=== PATIENT | male | born 1945 | race Caucasian/White ===

== ENCOUNTER 2021-06-04 08:47 | Day surgery (SDC) | payer OTHER, MEDICARE, SELFPAY ==
[~2021-06-04] VITALS: Ht 168.9 cm; Wt 71.2 kg
[~2021-06-04 08:47] MED LIST: CEFAZOLIN SOD 2 GM in D5W 50 ML IV ONE; LR 1,000 ML IV SCH
[2021-06-04] MEDS ORDERED: POLYMYXIN 500,000/BACIT.10,000 UNITS in NS IRR 1 L IR ONE (10:17)
[2021-06-04] MEDS ORDERED: SEVOFLURANE 15 MIN GAS INH ONE (11:05)
[2021-06-04] MEDS ORDERED: NS IRRIG SOLN 1000 ML IR ONE (11:05)
[2021-06-04] MEDS ORDERED: SUGAMMADEX SODIUM 200 MG/2 ML VIAL IV ONE (11:05)
[2021-06-04] MEDS ORDERED: PROPOFOL 200MG/ 20ML VIAL (DIPRIVAN) IV ONE (11:05)
[2021-06-04] MEDS ORDERED: KETOROLAC TROMETHAMINE 30 MG VIAL IVP ONE (11:05)
[2021-06-04] MEDS ORDERED: SUCCINYLCHOLINE CHLORIDE 20 MG/ML(QUELICIN) IVP ONE (11:05)
[2021-06-04] MEDS ORDERED: DEXAMETHASONE SOD PHOSPHATE 4 MG/ML VIAL IVP ONE (11:05)
[2021-06-04] MEDS ORDERED: MEPERIDINE 100 MG INJ. 100 MG/ML VIAL IM ONE (11:05)
[2021-06-04] MEDS ORDERED: ONDANSETRON HCL 4 MG/2 ML VIAL IVP ONE (11:05)
[2021-06-04] MEDS ORDERED: ROCURONIUM BROMIDE 10 MG/ML (ZEMURON) IV ONE (11:05)
[2021-06-04] MEDS ORDERED: LR 1,000 ML IV.SOLN IV ONE (11:05)
[2021-06-04] MEDS ORDERED: MIDAZOLAM HCL 5 MG/5 ML VIAL IVP ONE (11:05)
[2021-06-04] MEDS ORDERED: fentaNYL CITRATE/PF 100 MCG/2 ML AMP IVP ONE (11:05)
[2021-06-04] MEDS ORDERED: NS 1000 ML IV.SOLN IV ONE (11:05)
[2021-06-04] MEDS ORDERED: LR 1,000 ML IV SCH (13:15)
[2021-06-04] MEDS ORDERED: HYDROmorphone 1 MG/ML INJ. CARTRIDGE IVP PRN ×2 (13:15)
[2021-06-04] MEDS ORDERED: METOCLOPRAMIDE HCL 10 MG/2 ML VIAL IVP PRN (13:15)
[2021-06-04] MEDS ORDERED: ONDANSETRON HCL 4 MG/2 ML VIAL IVP PRN (13:15)
[2021-06-04] MEDS ORDERED: MEPERIDINE HCL/PF 25 MG/ML DISP.SYRIN IVP PRN (13:15)
[2021-06-04 18:04] VITALS: BP_SYST 139
== END 2021-06-04 18:30 | disposition home or self-care (01) ==
LOC: SMU 08:47 → SDS 08:47 → EDSTATUS 11:45 → SDS 18:30
PROVIDERS: ATTEND Surgery
DX: K40.20 Bilateral inguinal hernia, without obstruction or gangrene, not specified as recurrent (principal); K21.9 Gastro-esophageal reflux disease without esophagitis; E78.5 Hyperlipidemia, unspecified; I25.10 Atherosclerotic heart disease of native coronary artery without angina pectoris; I10 Essential (primary) hypertension; Z79.82 Long term (current) use of aspirin; Z79.01 Long term (current) use of anticoagulants; Z79.899 Other long term (current) drug therapy; Z20.822 Contact with and (suspected) exposure to COVID-19
CPT/HCPCS: 49650; 64425; C1727; C1781; C9399; J0330; J0690; J1100; J1885; J2175; J2250; J2405; J2704; J3010; J7030; J7060; J7120; U0003